=== PATIENT | male | born 1940 | race Caucasian/White ===

== ENCOUNTER 2019-08-23 12:33 | Outpatient (CLI) | payer MEDICARE, SELFPAY ==
--- NOTE | ~2019-08-23 | MR_ITS ---
EXAMINATION: MR pelvis wo/w con DATE: 08/23/2019 15:07 INDICATION: Pelvic pain. Right lower quadrant abdominal pain. TECHNIQUE: Magnetic resonance imaging (MRI) of the pelvis was performed without and with 18 mL MultiH ance intravenous contrast. Sequences included coronal and axial T2-weighted SS-FSE, coronal and axial FS 2D-FIESTA, axial T1-weighted dual-echo FSPGR, and axial T1-weighted LAVA. Postcontrast axial T1-w eighted LAVA images were obtained. COMPARISON: Pelvis MRI 06/20/2009 FINDINGS: There are no dilated loops of bowel. There is diverticulosis of the colon without evidence of diverti culitis. The prostate is moderately enlarged. There are bilateral inguinal hernias containing fat. Th ere are no pathologically enlarged lymph nodes. There is no free intraperitoneal fluid. IMPRESSION: 1. Bilateral inguinal hernias containing fat. Reviewed, dictated and finalized at location A. COORDINATOR
--- NOTE | ~2019-08-23 | MR_ITS ---
EXAMINATION: MR abdomen wo/w con DATE: 08/23/2019 15:07 INDICATION: Right lower quadrant abdominal pain. TECHNIQUE: Magnetic resonance imaging (MRI) of the abdomen was performed without and with 18 mL Multi Javier intravenous contrast. Sequences included coronal T2-weighted FS FSE, coronal and axial FS FIEST A, axial T2-weighted FSE, coronal LAVA-flex, axial STIR FSE, axial DWI, axial dual-echo T1-weighted F SPGR, and axial LAVA. Postcontrast sequences included coronal LAVA-flex and a time course of axial LA VA. COMPARISON: Abdomen MRI 06/20/2009 FINDINGS: There are numerous cysts in the liver measuring up to 3.3 cm. The gallbladder is normal. There is an 8 mm cyst in the spleen. The pancreas and adrenal glands are normal. There are cysts in the kidneys m easuring up to 2.1 cm on the right. There are changes of focal ablation of left kidney. There are no dilated loops of bowel. There are no pathologically enlarged lymph nodes. There is no free intraperit andrade fluid. IMPRESSION: 1. No etiology for the patient's symptoms. Reviewed, dictated and finalized at location A. STANT PLANT MANAGER
[2019-08-23 13:19] LABS: Blood Urea Nitrogen 14 mg/dL (8-26); Estimated Glomerular Filt Rate 53
== END 2019-08-23 12:34 | disposition home or self-care (01) ==
PROVIDERS: PCP Family Medicine; Visit Provider Family Medicine
DX: R10.2 Pelvic and perineal pain (principal); K40.20 Bilateral inguinal hernia, without obstruction or gangrene, not specified as recurrent
CPT/HCPCS: 72197; 74183; A9577

== ENCOUNTER 2022-01-19 13:45 | Emergency (ER) | payer MEDICARE, SELFPAY ==
[2022-01-19 14:10] VITALS: BP 139/53; PULSE 70; RESP 20; TEMP 36.6; O2SAT 97
--- NOTE | 2022-01-19 14:12 | ED.SKABFB ---
HPI - Skin/Abscess/Foreign Bdy General Chief complaint: Skin/Abscess/Foreign Body Stated complaint: Rash Time Seen by Provider: 01/19/22 14:30 Source: patient and RN notes reviewed Mode of arrival: ambulatory Limitations: no limitations History of Present Illness HPI narrative: 81-year-old male presents concern for itchy rash on bilateral forearms. He reports he has used poison ras treatment and fungal cream. He reports the rash has been there for 10 to 14 days. He reports the rash appeared after he was [place] [facility] [place]. He denies any known bites, he did not pull any ticks off his skin. He denies swollen lips, swollen tongue, trouble breathing. MD complaint: rash Related Data Home Medications Medication Instructions Recorded Confirmed aspirin 81 mg tablet,delayed 81 mg PO DAILY 09/12/19 09/18/19 release (Adult Low Dose Aspirin) atovaquone 250 mg-proguanil 100 mg 1 tablet PO DAILY 09/12/19 09/18/19 tablet (Malarone) cholecalciferol (vitamin D3) 50 2,000 unit PO DAILY 09/12/19 09/18/19 mcg (2,000 unit) tablet (Vitamin D3) citalopram 20 mg tablet 20 mg PO DAILY 09/12/19 09/18/19 glipizide 2.5 mg tablet, extended 2.5 mg PO DAILY 09/12/19 09/18/19 release 24 hr ibuprofen 600 mg tablet 600 mg PO Q6H PRN 09/12/19 09/18/19 metformin 500 mg tablet,extended 500 mg PO DAILY 09/12/19 09/18/19 release 24 hr turmeric 400 mg capsule mg PO 09/12/19 09/18/19 Allergies Allergy/AdvReac Type Severity Reaction Status Date / Time Gadolinium-Containing Allergy Unknown Unknown Verified 12/04/20 12:07 Contrast Medi Contrast Media Allergy Severe SEVERE Uncoded 12/04/20 12:07 FACIAL SWELLING Review of Systems Review of Systems: CONSTITUTIONAL: Denies malaise, chills, sweats, or fever. EYES: Denies redness, or discharge. ENT: Denies rhinorrhea, congestion, swollen lips, swollen tongue CARDIOVASCULAR: Denies chest pain, palpitations, or edema. RESPIRATORY: Denies cough or dyspnea. SKIN: Reports itchy rash on bilateral forearms MUSCULOSKELETAL: Denies joint pain or myalgia. NEUROLOGIC: Denies headache. All systems reviewed & are unremarkable except as noted in HPI and below PMFSH Past Medical History Medical History (Updated 01/19/22 @ 14:37 by Penelope Mcgarry NP) Cancer of kidney Colon cancer Minimal cognitive impairment Obstructive sleep apnea syndrome Psychosexual dysfunction associated with inhibited libido Recurrent major depressive episodes, moderate Type II diabetes mellitus Surgical History Surgical History (System 12/04/20 @ 12:07 by Stacy Quintero) History of appendectomy History of partial colectomy 2002 History of umbilical hernia repair 2003 Family History Family History (System 12/04/20 @ 12:07 by Stacy Quintero) Father Heart attack Mother Lung cancer Social History Social History (System 12/04/20 @ 12:07 by Stacy Quintero) Smoking status: Current some day smoker Alcohol intake: current Comments At time of signature, agree with nursing past medical, surgical, social and family history. There is no relevant family history pertinent to the presenting complaint Exam Narrative: GENERAL: Well-appearing, well-nourished, and in no acute distress. HEAD: Normocephalic, atraumatic. EYES: PERRLA, conjunctivae clear ENT: Mucous membranes moist. Oropharynx without edema, erythema or lesions. NECK: Supple. No lymphadenopathy CHEST: Clear to auscultation. No respiratory distress. HEART: Regular rate and rhythm. SKIN: Warm, dry. Patches of raised erythema on bilateral forearms, large patch on the right elbow NEURO: Alert and oriented x3. PSYCH: Normal mood and affect Course Course Emergency Course: Patient is aware of diagnosis, understands and agrees to treatment plan. Anticipatory guidance given. Patient agrees to follow-up as directed and is aware of reasons to seek care at the emergency department. Portion
== END 2022-01-19 14:45 | disposition home or self-care (01) ==
PROVIDERS: Emergency Provider Nurse Practitioner; PCP Family Medicine
DX: L25.9 Unspecified contact dermatitis, unspecified cause (principal); E11.9 Type 2 diabetes mellitus without complications
CPT/HCPCS: 99213; G0463

== ENCOUNTER 2022-04-08 10:42 | Outpatient (CLI) | payer MEDICARE, SELFPAY ==
--- NOTE | ~2022-04-08 | CT_ITS ---
EXAMINATION: CT abdomen pelvis wo con DATE: 04/08/2022 11:20 INDICATION: Abdominal pain TECHNIQUE: Computed tomography (CT) of the abdomen and pelvis was performed without intravenous contr ast. The dose-length product (DLP) was 616.42 mGy-cm. Automated exposure control and iterative recons truction technique were employed. COMPARISON: 02/10/2007; MRI, 08/23/2019 FINDINGS: Minimal dependent atelectasis is present in the lung bases. The heart size is normal. There are multiple cysts of the liver which measure up to 3.3 cm in the left hepatic lobe. The spleen, kee creas, gallbladder, and adrenal glands are normal. Cysts of the kidneys measure up to 11 mm on the le ft. There is calcification of the left kidney, consistent with treatment for renal cell carcinoma. No pathologically enlarged abdominal or pelvic lymph nodes are identified. There is calcified atheroscl erosis of the aorta and many of the other arteries. There is no free intraperitoneal gas or evidence of bowel obstruction. Colonic diverticulosis is present without evidence of diverticulitis. There are changes of right hemicolectomy. There is severe lumbar spondylosis. IMPRESSION: 1. No CT correlate for the patient's symptoms. Reviewed, dictated and finalized at location A.
== END 2022-04-08 10:43 | disposition home or self-care (01) ==
PROVIDERS: PCP Family Medicine; Visit Provider Family Medicine
DX: R10.9 Unspecified abdominal pain (principal)
CPT/HCPCS: 74176

== ENCOUNTER 2022-09-23 09:00 | Outpatient (CLI) | payer MEDICARE, SELFPAY ==
--- NOTE | ~2022-09-23 | CT_ITS ---
EXAMINATION: CT abdomen pelvis w con DATE: 09/23/2022 09:44 INDICATION: Abdominal pain TECHNIQUE: Computed tomography (CT) of the abdomen and pelvis was performed with 100 CC Omnipaque 350 intravenous contrast. Automated exposure control and iterative reconstruction technique were employe d. Exam dose: 516.40 mGy-cm total exam DLP. COMPARISON: 04/08/2022 CT abdomen pelvis FINDINGS: The lung bases are clear. Normal heart size. No pericardial or pleural effusion. There are numerous hepatic cysts of variable size scattered throughout left and right hepatic lobes a s well as caudate process, measuring up to 3.3 cm dimension. No suspicious solid hepatic lesion is ev ident. The gallbladder is present and appears unremarkable. No bile duct or pancreatic duct dilatation. No p ancreatic mass lesion or calcification. Normal splenic size. Normal morphology of the adrenal glands. Posterior lower pole right renal exophytic 2.2 cm cyst. 1.5 cm and two 1 cm left renal cysts. There is focal scarring and very prominent up to 1.7 x 1.9 cm dense large calcification at the anteri or mid to lower left kidney; history of treatment for prior left renal carcinoma. No urinary tract calcification or hydroureteronephrosis. There is prostate enlargement. Mild bilateral fat containing inguinal hernias. There is atherosclerotic calcification but normal caliber of the abdominal aorta. This probably calci fication at the origins of the renal arteries. Calcification of iliac and femoral arteries. No intraperitoneal or retroperitoneal or pelvic mass lesion or adenopathy or ascites. Status post right colectomy. Status post anterior abdominal wall mesh surgical repair. Diverticulosis of the sigmoid and descending colon; no evidence of diverticulitis. No bowel obstructi on or intraperitoneal free air. Prominent multilevel degenerative disc disease and degenerative changes apophyseal joints of the lumb ar spine. Diffuse idiopathic skeletal hyperostosis of the thoracic spine. IMPRESSION: Status post right colectomy Diverticulosis of left colon; no CT evidence of diverticulitis Numerous hepatic and scattered bilateral renal cysts Focal scarring and very prominent calcification at the anterior mid left kidney, residual from prior renal cell carcinoma treatment Prostate enlargement Bilateral fat-containing inguinal hernias Reviewed, dictated and finalized at Location A. Reviewed, dictated and finalized at location L. NCED MANUFACTURING ENGINEER IMPRESSION: Status post right colectomy Diverticulosis of left colon; no CT evidence of diverticulitis Numerous hepatic and scattered bilateral renal cysts Focal scarring and very prominent calcification at the anterior mid left kidney , residual from prior renal cell carcinoma treatment Prostate enlargement Bilateral fat-containing inguinal hernias
[2022-09-23 09:40] LABS: Estimated Glomerular Filt Rate > 60
== END 2022-09-23 09:01 | disposition home or self-care (01) ==
PROVIDERS: PCP Family Medicine; Visit Provider Family Medicine
DX: R10.9 Unspecified abdominal pain (principal); Z90.49 Acquired absence of other specified parts of digestive tract; K57.90 Diverticulosis of intestine, part unspecified, without perforation or abscess without bleeding; K76.89 Other specified diseases of liver; N28.1 Cyst of kidney, acquired; N40.0 Benign prostatic hyperplasia without lower urinary tract symptoms; K40.20 Bilateral inguinal hernia, without obstruction or gangrene, not specified as recurrent
CPT/HCPCS: 74177; Q9967

== ENCOUNTER → 2022-11-16 09:47 | Outpatient (CLI) | payer MEDICARE, SELFPAY ==
--- NOTE | ~2022-11-16 | XR_ITS ---
Lumbosacral Spine: AP and lateral views Clinical History: Pain Findings: There is mild dextroscoliosis. There is severe degenerative disc disease throughout the lum bar spine. There are prominent anterior marginal osteophytes, especially at L1-L2, L3-L4, L4-L5. Ther e is probable moderate facet arthropathy, especially at the lower lumbar spine. The sacroiliac joints are normally outlined. Impression: Advanced degenerative spondylosis, as detailed above. Reviewed, dictated and finalized at location M. Impression: Advanced degenerative spondylosis, as detailed above.
--- NOTE | ~2022-11-16 | XR_ITS ---
AP and lateral views of the right hip Clinical history: Pain Findings: No acute fracture or dislocation is seen. Osseous alignment is anatomic. The right hip join t and right SI joint are preserved. Soft tissues are unremarkable. Impression: No significant abnormality is seen. Reviewed, dictated and finalized at location . Impression: No significant abnormality is seen.
== END ==
PROVIDERS: PCP Family Medicine; Visit Provider Physician Assistant
DX: M25.551 Pain in right hip (principal); M47.816 Spondylosis without myelopathy or radiculopathy, lumbar region
CPT/HCPCS: 72100; 73502

== ENCOUNTER 2023-03-05 12:06 | Emergency (ER) | payer MEDICARE, SELFPAY ==
[2023-03-05 12:17] VITALS: BP 127/67; PULSE 57; RESP 18; TEMP 36.9; O2SAT 98
--- NOTE | 2023-03-05 12:33 | ED.ANIMALBIT ---
HPI - Animal Bite General Chief Complaint: Animal Bite Stated Complaint: Animal Bite Time Seen by Provider: 03/05/23 12:20 Source: patient Mode of arrival: ambulatory Limitations: no limitations History of Present Illness HPI narrative: Jean Pierre is a an 82-year-old male patient presenting to the clinic today with complaints of a opossum bite to his left hand. He reports he was releasing a opossum back into the wild yesterday and was bitten by the possum when trying to remove them. Left hand is swollen and painful. Tetanus is not up-to-date Related Data Home Medications Medication Instructions Recorded Confirmed aspirin 81 mg tablet,delayed 81 mg PO DAILY 09/12/19 09/18/19 release (Adult Low Dose Aspirin) atovaquone 250 mg-proguanil 100 mg 1 tablet PO DAILY 09/12/19 09/18/19 tablet (Malarone) cholecalciferol (vitamin D3) 50 2,000 unit PO DAILY 09/12/19 09/18/19 mcg (2,000 unit) tablet (Vitamin D3) citalopram 20 mg tablet 20 mg PO DAILY 09/12/19 09/18/19 glipizide 2.5 mg tablet, extended 2.5 mg PO DAILY 09/12/19 09/18/19 release 24 hr ibuprofen 600 mg tablet 600 mg PO Q6H PRN 09/12/19 09/18/19 metformin 500 mg tablet,extended 500 mg PO DAILY 09/12/19 09/18/19 release 24 hr turmeric 400 mg capsule mg PO 09/12/19 09/18/19 Allergies Allergy/AdvReac Type Severity Reaction Status Date / Time Gadolinium-Containing Allergy Unknown Unknown Verified 12/04/20 12:07 Contrast Medi Contrast Media Allergy Severe SEVERE Uncoded 12/04/20 12:07 FACIAL SWELLING Review of Systems Review of Systems: Pertinent positives per HPI. Patient denies any fever, chills, rash, headache, visual changes, dizziness, cough, runny nose, sore throat, shortness of breath, chest pain, palpitations, nausea, vomiting, diarrhea, constipation, abdominal pain, or any urinary issues. PMF Past Medical History Medical History Cancer of kidney Colon cancer Minimal cognitive impairment Obstructive sleep apnea syndrome Psychosexual dysfunction associated with inhibited libido Recurrent major depressive episodes, moderate Type II diabetes mellitus Surgical History Surgical History (System 12/04/20 @ 12:07 by Stacy Quintero) History of appendectomy History of partial colectomy 2002 History of umbilical hernia repair 2003 Family History Family History Father Heart attack Mother Lung cancer Social History Social History Smoking status: Current some day smoker Alcohol intake: current Living arrangements: with family Occupation/Education: retired Comments At the time of my signature, I reviewed and agree with the nursing past medical, surgical, social, and family history. There is no relevant family history pertinent to the patient complaint. Exam Narrative: General: Well-developed, well nourished, in no apparent distress Head: Normocephalic, atraumatic. Cardio: Regular rate and rhythm, s1 and s2 normal, no murmur appreciated. Resp: Clear to auscultation bilaterally, no rhonchi, rales, wheezing or rubs. Integumentary: [place], warm, and dry, puncture wound over the left 1st and 2nd ankles of the right hand with localized swelling and redness, no discharge, no fluctuance or abscess palpable, able to fully extend and flex his index and 3rd fingers Course Course Emergency Course: Portions of this record may have been created with voice recognition software. Level of Care: Express Care Visit Vital Signs Vital signs: Vital signs reviewed MDM - Animal Bite MDM Narrative Medical decision making narrative: At the time of visit patient is resting comfortably on the exam table. I suspect the patient has an infected animal bite. Tetanus shot was given in the clinic today. Reviewed
[2023-03-05] MEDS: TETANUS,DIPHTHERIA,AC PERTUSSIS ADULT (0.5 ML) BOOSTRIX IM (12:40)
--- NOTE | 2023-03-05 12:56 | PC.NURSE ---
documentation completed per sivakumar chapman rn, and reviewed.
== END 2023-03-05 12:55 | disposition home or self-care (01) ==
PROVIDERS: Emergency Provider Nurse Practitioner Family; PCP Family Medicine
DX: S61.431A Puncture wound without foreign body of right hand, initial encounter (principal); W64.XXXA Exposure to other animate mechanical forces, initial encounter; Z23 Encounter for immunization; F17.200 Nicotine dependence, unspecified, uncomplicated; E11.9 Type 2 diabetes mellitus without complications; Z85.038 Personal history of other malignant neoplasm of large intestine; Z85.528 Personal history of other malignant neoplasm of kidney; Z79.82 Long term (current) use of aspirin; Z79.84 Long term (current) use of oral hypoglycemic drugs
CPT/HCPCS: 90471; 90714; 90715; 99213; G0463

== ENCOUNTER 2023-05-14 11:34 | Emergency (ER) | payer MEDICARE, SELFPAY ==
[2023-05-14 11:42] VITALS: BP 151/64; PULSE 62; RESP 18; TEMP 36.4; O2SAT 96
--- NOTE | 2023-05-14 11:59 | ECG_ITS ---
Measurements Intervals [place] Rate: 58 P: 46 GA: 295 QRS: 72 QRSD: 153 T: 18 QT: 466 QTc: 458 Interpretive Statements SINUS BRADYCARDIA WITH FIRST DEGREE AV BLOCK RIGHT BUNDLE BRANCH BLOCK [120+ ms QRS DURATION, UPRIGHT V1, 40+ ms S IN I/aVL/V4/V5/V6] ABNORMAL ECG NO PREVIOUS ECG AVAILABLE FOR COMPARISON Electronically Signed On 05-14-2023 14:43:57 CDT by Helder Barclay M.D.
--- NOTE | 2023-05-14 12:20 | ED.FALL ---
HPI - Fall General Chief Complaint: Skin/Abscess/Foreign Body Stated Complaint: fall, dizziness, hand injury Time Seen by Provider: 05/14/23 12:00 Source: patient and RN notes reviewed Mode of arrival: ambulatory Limitations: no limitations History of Present Illness HPI Narrative: Patient presents today complaining of dizziness and fall around 10 30 this morning. He struck the posterior scalp on concrete. Denies loss of consciousness. He also reports a laceration to his left hand. Patient takes aspirin. Denies headache, vision changes, nausea vomiting, chest pain or shortness of breath, neck pain. History of high blood pressure and high cholesterol. Related Data Home Medications Medication Instructions Recorded Confirmed aspirin 81 mg tablet,delayed 81 mg PO DAILY 09/12/19 09/18/19 release (Adult Low Dose Aspirin) cholecalciferol (vitamin D3) 50 2,000 unit PO DAILY 09/12/19 09/18/19 mcg (2,000 unit) tablet (Vitamin D3) citalopram 20 mg tablet 20 mg PO DAILY 09/12/19 09/18/19 atorvastatin 10 mg tablet mg 05/14/23 biotin 10,000 mcg chewable tablet mcg PO 05/14/23 05/14/23 lisinopril 5 mg tablet mg 05/14/23 Allergies Allergy/AdvReac Type Severity Reaction Status Date / Time Gadolinium-Containing Allergy Unknown Unknown Verified 05/14/23 11:40 Contrast Medi Contrast Media Allergy Severe SEVERE Uncoded 05/14/23 11:40 FACIAL SWELLING Review of Systems Review of Systems: CONSTITUTIONAL: Denies body aches, fever, chills, or sweats. EYES: Denies visual changes, redness, or discharge. ENT: Denies rhinorrhea, congestion, sore throat, or otalgia. CARDIOVASCULAR: Denies chest pain, palpitations, or edema. RESPIRATORY: Denies cough or dyspnea. GASTROINTESTINAL: Denies abdominal pain, nausea, vomiting, or diarrhea. GENITOURINARY: Denies dysuria or hematuria. SKIN: + abrasion to scalp, laceration to left hand MUSCULOSKELETAL: Denies back pain, joint pain, or myalgia. NEUROLOGIC: Denies headache, numbness, tingling, or weakness.+ dizziness PSYCH: Denies depression or anxiety. [facility] Past Medical History Medical History (Updated 05/14/23 @ 12:32 by Patrizia Andersen, [employer] WINDOWS ENGINEER, ) Cancer of kidney Colon cancer Minimal cognitive impairment Obstructive sleep apnea syndrome Psychosexual dysfunction associated with inhibited libido Recurrent major depressive episodes, moderate Type II diabetes mellitus Surgical History Surgical History History of appendectomy History of partial colectomy 2003 History of umbilical hernia repair 2004 Family History Family History Father Heart attack Mother Lung cancer Social History Social History Smoking status: Current some day smoker Alcohol intake: current Living arrangements: with family Occupation/Education: retired Comments At time of signature, I have reviewed and agree with nursing past medical, surgical, social and family history unless otherwise noted. Please see nursing chart for further information. There is no relevant family history pertinent to the presenting complaint Exam Narrative: GENERAL: Well-appearing, well-nourished, and in no acute distress. HEAD: Normocephalic. 5x5 cm abrasion and localized edema to the posterior scalp. EYES: EOMI. No redness or drainage. Conjunctivae normal. ENT: Mucous membranes pink and moist. NECK: Normal AROM. Supple. No lymphadenopathy. Neck is nontender. CHEST: No respiratory distress. Clear to auscultation. HEART: Regular rate and rhythm. No murmur appreciated. Normal peripheral pulses. On monitor, patient's HR variable from 30s-50s EXTREMITIES: Normal range of motion. No edema. SKIN: Warm, dry, no rash. Capillary refill normal. Normal skin turgor. 2cm full thickness laceration t
== END 2023-05-14 12:18 | disposition short-term general hospital (02) ==
PROVIDERS: Emergency Provider Nurse Practitioner; PCP Family Medicine
DX: R42 Dizziness and giddiness (principal); R00.1 Bradycardia, unspecified; S09.90XA Unspecified injury of head, initial encounter; W19.XXXA Unspecified fall, initial encounter; F17.200 Nicotine dependence, unspecified, uncomplicated; E11.9 Type 2 diabetes mellitus without complications; Z85.038 Personal history of other malignant neoplasm of large intestine; Z85.528 Personal history of other malignant neoplasm of kidney; Z79.82 Long term (current) use of aspirin; F33.9 Major depressive disorder, recurrent, unspecified; Z90.49 Acquired absence of other specified parts of digestive tract
CPT/HCPCS: 93005; 99215; G0463

== ENCOUNTER 2023-05-14 12:38 | Emergency (ER) | payer MEDICARE, SELFPAY ==
--- NOTE | ~2023-05-14 | XR_ITS ---
XR chest 2V DATE: 05/14/2023 14:09 INDICATION: Dizziness. Fall this morning. 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 Left ventricular enlargement. Aortic calcification and mild unfolding. No hilar or mediastinal enlarg ement. Bilateral moderate hyperinflation. Vague focal ill-defined density overlying left upper lung; CT thorax is recommended to exclude left u pper lobe lung mass. Otherwise no pulmonary infiltrate or consolidation, pleural effusion or pulmonar y vascular congestion or pneumothorax is detected. Degenerative spurring of the thoracic spine. IMPRESSION: Vague focal area of increased density overlying left upper lung; left upper lobe mass is not excluded. CT thorax is recommended. Left ventricular enlargement Moderate hyperinflation No active pulmonary disease Reviewed, dictated and finalized at location A. IMPRESSION: Vague focal area of increased density overlying left upper lung; le ft upper lobe mass is not excluded. CT thorax is recommended. Left ventricular enlargement Moderate hyperinflation No active pulmonary disease
--- NOTE | ~2023-05-14 | CT_ITS ---
EXAMINATION: CT brain wo con DATE: 05/14/2023 14:00 INDICATION: Head injury. Syncopal episode. Patient struck the back of his head. Patient takes blood t hinners. TECHNIQUE: Computed tomography (CT) of the head was performed without intravenous contrast. The mA wa s adjusted according to patient size. Iterative reconstruction technique was employed. Exam dose: 60 5.33 mGy-cm total exam DLP. COMPARISON: None FINDINGS: Vertebral and carotid siphon internal carotid artery calcifications. There is nonspecific d iminished attenuation of the cerebral white matter, likely due to chronic small vessel ischemic dut[place] es. No intracranial mass lesion or hemorrhage or recent cerebrovascular accident, midline shift or mass e ffect is detected. No subdural or epidural hematoma is detected. The mastoid air cells are unremarkable. Is patchy soft tissue thickening of the ethmoid air cells amol aterally. The paranasal sinuses are otherwise unremarkable. No fracture or bone destruction of the cranial vault. IMPRESSION: No skull fracture or acute intracranial finding Cerebral atherosclerosis Reviewed, dictated and finalized at Location [facility]. Reviewed, dictated and finalized at location A.
--- NOTE | ~2023-05-14 | CT_ITS ---
EXAMINATION: CT diagnostic chest wo con DATE: 05/14/2023 15:17 INDICATION: left lung mass TECHNIQUE: Computed tomography (CT) of the chest was performed with 100 mL Omnipaque-350 intravenous contrast. Automated exposure control and iterative reconstruction technique were employed. The dose-l ength product was 327.16 mGy-cm. COMPARISON: X-ray chest 05/06/2023. FINDINGS: CHEST: Thoracic aorta: No significant dilation or calcification. Lung parenchyma and airways: Mixed solid and groundglass left upper lobe nodule with spiculated and l obular margins. Solid component measures 12 mm. Emphysematous change. Thoracic inlet, axillae and chest wall: Calcified left axillary lymph node. 1.7 cm right thyroid nodu le. Mediastinum: No mass or lymphadenopathy. Heart and pericardium: Normal heart size. No pericardial effusion. Coronary artery calcifications: Heavy. Pleura: No effusion or mass. Upper abdomen: Innumerable hepatic cysts. Dystrophic scar class calcification in the left kidney. Jorge cified cyst/hemangioma in the spleen. Thoracic bones: No acute osseous finding in the chest. IMPRESSION: 12 mm partly solid left upper lobe nodule. Recommend PET/CT, biopsy, or referral for resection. 1.7 cm right thyroid nodule, recommend outpatient thyroid ultrasound for further characterization. Reviewed, dictated and finalized at location K. IMPRESSION: 12 mm partly solid left upper lobe nodule. Recommend PET/CT, biopsy, or referra l for resection. 1.7 cm right thyroid nodule, recommend outpatient thyroid ultrasound for furthe r characterization.
--- NOTE | ~2023-05-14 | XR_ITS ---
XR hand LT min 3V DATE: 05/14/2023 14:09 INDICATION: Fall. Pulmonary laceration near fifth metacarpophalangeal joint TECHNIQUE: 3 views COMPARISON: None FINDINGS: No subcutaneous emphysema or fracture or dislocation, periosteal reaction or bone destructi on is noted. There is polyarticular arthritis involving particularly the first carpometacarpal and second and thir d metacarpophalangeal joints, with involvement of the remaining metacarpophalangeal joints. IMPRESSION: Polyarticular osteoarthritis No fracture or dislocation or subcutaneous emphysema is detected Reviewed, dictated and finalized at location A.
[2023-05-14 12:42] VITALS: BP 180/85; PULSE 61; RESP 16; TEMP 36.7; O2SAT 99
--- NOTE | 2023-05-14 12:57 | ED.FALL ---
HPI - Fall General Chief Complaint: Fall Stated Complaint: fall/ head injury Time Seen by Provider: 05/14/23 12:41 History of Present Illness HPI Narrative: Patient is an 82-year-old male who presents ER after a fall. Reports she has had a chill he took off when he either got dizzy and fell or tripped and fell striking the back of his head against the ground. Denies losing consciousness. Reports he has been having intermittent dizziness since then with physical movements but not with moving his head left or right or up and down. No confusion. No change in vision or hearing. Reports she has some stiffness in his left fifth digit where he has a palmar laceration. Tetanus shot up-to-date. After getting up from falling he said he was dizzy and nauseous and did throw up. Patient is on no blood thinners. Urgent care reports patient's heart rate was in the 30s and 50s intermittently but patient is not dizzy at that time. Related Data Home Medications Medication Instructions Recorded Confirmed aspirin 81 mg tablet,delayed 81 mg PO DAILY 09/12/19 09/18/19 release (Adult Low Dose Aspirin) cholecalciferol (vitamin D3) 50 2,000 unit PO DAILY 09/12/19 09/18/19 mcg (2,000 unit) tablet (Vitamin D3) citalopram 20 mg tablet 20 mg PO DAILY 09/12/19 09/18/19 atorvastatin 10 mg tablet mg 05/14/23 biotin 10,000 mcg chewable tablet mcg PO 05/14/23 05/14/23 lisinopril 5 mg tablet mg 05/14/23 Allergies Allergy/AdvReac Type Severity Reaction Status Date / Time Gadolinium-Containing Allergy Unknown Unknown Verified 05/14/23 11:40 Contrast Medi Contrast Media Allergy Severe SEVERE Uncoded 05/14/23 11:40 FACIAL SWELLING Review of Systems Review of Systems: All systems reviewed & are unremarkable except as noted in HPI and below Constitutional: Constitutional: Denies chills, Denies fatigue and Denies fever(s) Eyes: Eyes: Denies change in vision ENT: Denies nasal congestion and Denies sore throat Cardiovascular: Cardiovascular: Denies chest pain, Denies rapid heart rate, Denies radiating jaw, neck or arm pain and Reports slow heart rate (Urgent care reports slow heart rate in the 30s to 50s.) Respiratory: Respiratory: Denies cough, Denies dyspnea and Denies wheezing Gastrointestinal: Gastrointestinal: Denies abdominal pain, Reports nausea and Reports vomiting Neurologic: Denies syncope, Denies headache(s), Denies focal weakness and Denies numbness PMFSH Past Medical History Medical History (Updated 05/14/23 @ 16:46 by Gus Mir MD) Cancer of kidney Colon cancer Minimal cognitive impairment Obstructive sleep apnea syndrome Psychosexual dysfunction associated with inhibited libido Recurrent major depressive episodes, moderate Type II diabetes mellitus Surgical History Surgical History History of appendectomy History of partial colectomy 2002 History of umbilical hernia repair 2003 Family History Family History Father Heart attack Mother Lung cancer Social History Social History Smoking status: Current some day smoker Alcohol intake: current Living arrangements: with family Occupation/Education: retired Exam Narrative: GENERAL: Well-appearing, well-nourished, and in no acute distress. HEAD: Normocephalic, abrasion with STS posterior scalp. EYES: PERRL and EOMI. ENT: Mucous membranes moist. CHEST: Clear to auscultation. No respiratory distress. HEART: Regular rate and rhythm. Normal peripheral pulses. ABDOMEN: Soft, nontender, nondistended EXTREMITIES: Normal range of motion. No edema. SKIN: Warm, dry, no rash. 2cm palmar lac left hand at 5th MCP. NEURO: Alert and oriented x3. PSYCH: Normal mood and affect. Course Course Emergency Course: Patient rest
--- NOTE | 2023-05-14 13:04 | ECG_ITS ---
Measurements Intervals [place] Rate: 58 P: 5 SC: 299 QRS: 56 QRSD: 158 T: -5 QT: 457 QTc: 452 Interpretive Statements SINUS BRADYCARDIA WITH FIRST DEGREE AV BLOCK WITH OCCASIONAL VENTRICULAR PREMATURE COMPLEXES RIGHT BUNDLE BRANCH BLOCK [120+ ms QRS DURATION, UPRIGHT V1, 40+ ms S IN I/aVL/V4/V5/V6] ABNORMAL ECG COMPARED TO ECG 05/14/2023 11:58:16 NO SIGNIFICANT CHANGES Electronically Signed On 05-14-2023 14:47:03 CDT by Helder Barclay M.D.
[2023-05-14 13:12] LABS: Basophils Absolute Auto 0.1 K/mm3 (0.0-0.1); Basophils Percent Auto 0.6 % (0.2-1.2); Eosinophils Absolute Auto 0.3 K/mm3 (0-0.3); Hematocrit 40.6 % (42.0-52.0); Hemoglobin 13.7 g/dL (14.0-18.0); Immature Granulocyte Absolute 0.06 K/mm3 (0.00-0.031); Immature Granulocyte Percent A 0.6 % (0-0.5); Lymphocytes Absolute Auto 1.45 K/mm3 (0.9-3.2); Lymphocytes Percent Auto 14.8 % (18.3-44.2); Mean Corpuscular HGB Conc 33.7 g/dl (32-36); Mean Corpuscular Hemoglobin 32.5 pg (26-34); Mean Corpuscular Volume 96.4 fl (80-100); Mean Platelet Volume 9.8 fl (7.4-10.4); Monocytes Absolute Auto 0.8 K/mm3 (0.1-0.6); Neutrophils Absolute Auto 7.2 K/mm3 (1.3-6.7); Platelet Count Result 219 k/mm3 (150-375); Red Blood Count 4.21 M/mm3 (4.6-6.20); Red Cell Distribution Width 12.1 % (11.5-14.5); White Blood Count 9.8 K/mm3 (4.5-10.0)
[2023-05-14 13:22] LABS: Prothrombin Time 13.5 Seconds (11.1-14.7)
[2023-05-14 13:23] LABS: Partial Thromboplastin Time 25.8 SECONDS (22.3-36.8)
[2023-05-14 13:24] LABS: Alanine Aminotransferase 21 U/L (6-50); Albumin Level 4.2 g/dL (3.5-5.1); Alkaline Phosphatase 60 U/L (38-126); Anion Gap 8 mmol/L (8-16); Aspartate Amino Transferase 26 U/L (17-59); Blood Urea Nitrogen 12 mg/dL (9-20); Calcium 9.1 mg/dL (8.4-10.2); Carbon Dioxide 26 mmol/L (22-30); Chloride 102 mmol/L (98-107); Estimated CRCL calculation 55 ml/min; Estimated Glomerular Filt Rate > 60; Glucose 124 mg/dL (65-110); Potassium 4.2 mmol/L (3.4-5.0); Sodium 136 mmol/L (137-145)
[2023-05-14 13:31] VITALS: BP 161/82; PULSE 59
[2023-05-14 13:32] VITALS: BP 167/81; PULSE 60
[2023-05-14 13:34] LABS: Troponin I < 0.012 ng/mL (0.000-0.034)
[2023-05-14 13:35] VITALS: BP 158/81; PULSE 60
[2023-05-14 15:26] VITALS: BP 152/75; PULSE 62; RESP 18; O2SAT 98
== END 2023-05-14 16:57 | disposition home or self-care (01) ==
PROVIDERS: Emergency Provider Emergency Medicine; PCP Family Medicine
DX: S09.90XA Unspecified injury of head, initial encounter (principal); S61.412A Laceration without foreign body of left hand, initial encounter; R91.1 Solitary pulmonary nodule; E04.1 Nontoxic single thyroid nodule; R11.0 Nausea; E11.9 Type 2 diabetes mellitus without complications; F17.210 Nicotine dependence, cigarettes, uncomplicated; Z79.899 Other long term (current) drug therapy; Z85.528 Personal history of other malignant neoplasm of kidney; W01.0XXA Fall on same level from slipping, tripping and stumbling without subsequent striking against object, initial encounter
CPT/HCPCS: 12001; 36415; 70450; 71046; 71250; 73130; 80053; 84484; 85025; 85610; 85730; 93005; 99284

== ENCOUNTER 2023-06-13 15:36 | Outpatient (CLI) | payer MEDICARE, SELFPAY ==
--- NOTE | ~2023-06-13 | US_ITS ---
EXAMINATION: US carotid duplex BI DATE: 06/13/2023 17:28 INDICATION: Bilateral carotid stenosis TECHNIQUE: Grayscale, color Doppler, and pulsed Doppler images of the cervical carotid arteries were obtained. The degree of vessel stenosis is placed in one of the following categories: normal, <50%, 5 0-69%, >=70% but less than near-occlusion, near-occlusion, or total occlusion. Note that percent sten osis relative to normal distal artery lumen diameter is indirectly measured from velocity measurement s as described by Teddy, et al. Radiology 2003; 229:340-346. COMPARISON: None. FINDINGS: RIGHT: The right common carotid artery (CCA) peak systolic velocity (PSV) is 82 cm/s. The right internal car otid artery (ICA) PSV is 65 cm/s. The right ICA end-diastolic velocity (EDV) is 12 cm/s. The right IC A/CCA PSV ratio is 0.8. Grayscale and color Doppler images yield an estimate of <50% diameter reducti on from plaque in the ICA. The external carotid artery (ECA) PSV is 92 cm/s. There is antegrade flow in the right vertebral artery. LEFT: The left CCA PSV is 91 cm/s. The left ICA PSV is 123 cm/s. The left ICA EDV is 24 cm/s. The left ICA/ CCA PSV ratio is 1.4. Grayscale and color Doppler images yield an estimate of <50% diameter reduction from plaque in the ICA. The ECA PSV is 85 cm/s. There is antegrade flow in the left vertebral artery . IMPRESSION: 1. <50% stenosis in the right internal carotid artery. 2. <50% stenosis in the left internal carotid artery. Reviewed, dictated and finalized at location A. GER ENGAGEMENT
--- NOTE | ~2023-06-13 | US_ITS ---
EXAMINATION: US thyroid DATE: 06/13/2023 17:29 INDICATION: Nontoxic single thyroid nodule TECHNIQUE: Multiple ultrasound images of the thyroid were obtained. COMPARISON: None. FINDINGS: The right thyroid lobe measures 4.9 x 2.1 x 1.8 cm. The left thyroid lobe measures 3.8 x 1.9 x 1.4 c m. 1.7 cm wider than tall spongiform TI RADS 1 nodule in the inferior right thyroid lobe. 4 mm anech oic cystic TI RADS 1 nodule in the left thyroid. There is normal echotexture, echogenicity and vascul ar flow throughout the remainder of the thyroid gland. IMPRESSION: 1. A couple benign TI RADS 1 thyroid nodules. Recommend clinical followup with repeat imaging if ther e are changes on physical exam. Reviewed, dictated and finalized at location A. REPAIR SHOP MANAGER IMPRESSION: 1. A couple benign TI RADS 1 thyroid nodules. Recommend clinical followup with repeat imaging if there are changes on physical exam.
== END 2023-06-13 15:37 | disposition home or self-care (01) ==
PROVIDERS: PCP Family Medicine; Visit Provider Family Medicine
DX: E04.1 Nontoxic single thyroid nodule (principal); I65.23 Occlusion and stenosis of bilateral carotid arteries
CPT/HCPCS: 76536; 93880

== ENCOUNTER 2023-06-14 07:22 | Outpatient (CLI) | payer MEDICARE, SELFPAY ==
--- NOTE | ~2023-06-14 | PE_ITS ---
EXAMINATION: PET skull to mid thigh DATE: 06/14/2023 09:21 INDICATION: Solitary pulmonary nodule. TECHNIQUE: Blood glucose level was 127 mg/dL. 9.155 mCi of 18-fluorodeoxyglucose (18-FDG) was adminis tered i.v. Low dose computed tomography (CT) images were acquired from the base of the brain to the p roximal thighs for attenuation correction and anatomic localization. Automated exposure control was e mployed. Dose-length product (DLP) was 915 mGy-cm. Positron emission tomography (PET) images were acq uired in the same distribution. COMPARISON: Chest CT 05/14/2023, CT abdomen and pelvis 04/08/2022, abdomen MRI 08/23/2019 FINDINGS: Head/neck: There are no pathologically enlarged lymph nodes. There are nodules in the thyroid measuri ng up to 12 mm without increased activity, likely not clinically significant. Chest: There is mild emphysema. There is mild scarring at the lung apices. There is mild scarring in paraspinal right lower lobe. There is a 1.7 cm nodule in left lung upper lobe with maximum SUV of 3.5 . No pleural effusion. The heart size is normal. There are coronary artery calcifications. No pericar dial effusion. There are no pathologically enlarged lymph nodes. Abdomen/pelvis/proximal thighs: There are cysts in the liver measuring up to 4.4 cm. The gallbladder, pancreas, and right adrenal gland are normal. There is chronic thickening of left adrenal gland with increased activity, likely benign. Calcifications in the spleen are consistent with old granulomatou s disease. There are cysts in the kidneys measuring up to 2.2 cm on the right. There are changes of a blation of left kidney. There are changes of ventral hernia repair. The prostate is moderately enlarg ed. There is diffuse bladder wall thickening, likely secondary to chronic outlet obstruction. There a re bilateral inguinal hernias containing fat. There is diverticulosis of the colon without evidence o f diverticulitis. There are changes of right hemicolectomy. There are no dilated loops of bowel. Ther e is calcified atherosclerosis of the aorta and many of the other arteries. There are no pathological ly enlarged lymph nodes. There is no free intraperitoneal fluid. There is severe lumbar spondylosis. IMPRESSION: 1. 1.7 cm nodule in left lung upper lobe with maximum SUV of 3.5 suspicious for primary bronchogenic carcinoma. CT-guided biopsy is recommended. Reviewed, dictated and finalized at location A. ING TACKER
[2023-06-14 07:56] LABS: Glucose Point of Care 127 mg/dl (65-105)
== END 2023-06-14 07:23 | disposition home or self-care (01) ==
PROVIDERS: PCP Family Medicine; Visit Provider Family Medicine
DX: R91.1 Solitary pulmonary nodule (principal)
CPT/HCPCS: 78815; A9552

== ENCOUNTER 2023-07-07 05:48 | Outpatient (CLI) | payer MEDICARE, SELFPAY ==
[2023-07-01 14:49] VITALS: BMI 27.6
--- NOTE | 2023-07-01 14:49 | PC.NURSE ---
Pre Radiology instructions Report to the outpatient evelyne valenzuela on date __07/07/23___ at time ___0900____ for procedure Time: _1100___ YOU MAY BE MONITORED AT HOSPITAL FOR UP TO 4 HOURS AFTER YOUR PROCEDURE. A visitor will be allowed to accompany the patient into the hospital. You and your visitor will be asked to self-screen and do not enter if you have any COVID symptoms. A mask is OPTIONAL within the hospital. Patients are to have no food or drink 6 hours prior to procedure time (0500 AM) Driving will be restricted after the procedure, you must have a person to drive you home. Labs will be drawn in preop area and once reviewed, you will be taken to radiology area for procedure. When the procedure is completed, you will be taken to outpatient where you will be monitored for several hours. You may have one visitor in this area. Other than holding anti-coagulants, patient may take other medication(s) as scheduled. Prior to your appointment date patients are instructed to hold anti-coagulants after discussing with ordering provider to stop. If unable to discontinue anti-coagulants please notify radiologist. ? No aspirin or warfarin (Coumadin) for 7 days prior to the procedure. ? No clopidogrel (Plavix), ticagrelor (Brilinta), prasugrel (Effient) or dabigatran (Pradaxa) for 5 days prior to the procedure. ? No rivaroxaban (Xarelto), apixaban (Eliquis), dipyridamole (Aggrenox or Persantine) or cilostazol (Pletal) for 2 days prior to the procedure. Medications to discontinue per physician: ___ASPIRIN Date to take last dose: __06/29/23 - CONFIRMED WITH PT Please leave all valuables, including medications, at home the day of procedure. The hospital will not accept responsibility for valuables. Wear comfortable, loose fitting clothing.? Follow any additional instructions given to you from ordering provider. Telephone instructions given to ___PATIENT and asked if any additional questions and then verbalized understanding. Patient advised to call scheduling provider office or registration scheduling [phone] if any additional questions.
[2023-07-07] VITALS (11 sets, daily range): BP systolic 115–150; BP diastolic 50–82; PULSE 56–61; RESP 16–20; TEMP 36.6; O2SAT 96–100
--- NOTE | ~2023-07-07 | CT_ITS ---
EXAMINATION: CT biopsy lung w/imaging DATE: 07/07/2023 12:13 INDICATION: FDG avid left lung mass. TECHNIQUE: The procedure including the risks and benefits was discussed with the patient. Risks discu ssed included infection, approximately 1/20 risk of symptomatic hemorrhage beyond mild hemoptysis, ap proximately 1/3 risk of pneumothorax, and approximately 1/10 risk of pneumothorax severe enough to wa rrant chest tube placement. The patient understood the risks and agreed to proceed. The patient was p laced prone. The skin overlying the left paraspinal upper thorax was prepped and draped in sterile f ashion. Anesthetic was administered with 1% lidocaine subcutaneously. A 19 gauge outer needle was a dvanced under CT guidance to the lesion of interest. A 20 gauge core biopsy needle was then used to o btain 4 core biopsy specimens. The needle was removed and the entry site was cleaned and dressed. Th ere were no immediate complications. The dose-length product was 179.48 mGy-cm. FINDINGS: CT images demonstrate the outer needle tip adjacent to a 2.4 cm mixed solid and some solid left upper lobe mass. IMPRESSION: 1. Successful CT-guided biopsy of the 2.4 cm left upper lobe mass of concern. Reviewed, dictated and finalized at location A. BULETTE DRIVER
--- NOTE | ~2023-07-07 | XR_ITS ---
EXAMINATION: XR chest 1V portable DATE: 07/07/2023 13:04 INDICATION: Status post left percutaneous lung biopsy TECHNIQUE: frontal view of the chest was obtained. COMPARISON: Chest radiograph dated 07/07/2023 FINDINGS: No new airspace opacities, pulmonary edema, pleural effusion or pneumothorax. Again seen is a subtle biopsied nodule projecting over the left upper lung zone. Nipple shadow projects over the inferior ma rgin of the anterior left sixth rib. The cardiomediastinal silhouette is normal. IMPRESSION: 1. No pneumothorax or other acute cardiopulmonary disease post percutaneous biopsy of a left upper lo be mass which is suspicious for primary bronchogenic carcinoma. Reviewed, dictated and finalized at location A. S WASHER IMPRESSION: 1. No pneumothorax or other acute cardiopulmonary disease post percutaneous bio psy of a left upper lobe mass which is suspicious for primary bronchogenic carc inoma.
--- NOTE | ~2023-07-07 | XR_ITS ---
EXAMINATION: XR chest 1V portable DATE: 07/07/2023 15:06 INDICATION: Left upper lobe mass post percutaneous left lung biopsy TECHNIQUE: frontal view of the chest was obtained. COMPARISON: Chest radiograph dated 07/07/[address] dated 05/14/2023 FINDINGS: Again seen is a subtle opacity left upper lung corresponding to the biopsied left upper lobe mass. Mi ld right apical pleural-parenchymal scarring. No new airspace opacities, pulmonary edema, pleural eff usion or pneumothorax. The cardiomediastinal silhouette is normal. IMPRESSION: 1. No pneumothorax or other acute cardiopulmonary disease post percutaneous biopsy of a left upper lo be mass concerning for primary bronchogenic carcinoma. Reviewed, dictated and finalized at location A. CIATE FINANCIAL ADVISOR IMPRESSION: 1. No pneumothorax or other acute cardiopulmonary disease post percutaneous bio psy of a left upper lobe mass concerning for primary bronchogenic carcinoma.
--- NOTE | ~2023-07-07 | XR_ITS ---
EXAMINATION: XR chest 1V DATE: 07/07/2023 12:13 INDICATION: Status post left lung biopsy TECHNIQUE: frontal view of the chest was obtained. COMPARISON: Chest radiograph dated 05/14/2023 FINDINGS: Again seen is the biopsied subtle nodular opacity projecting over the anterior left second rib. No ap preciable surrounding pulmonary hemorrhage or other new airspace opacities. No pulmonary edema, pleur al effusion or pneumothorax. The cardiomediastinal silhouette is normal. Moderate left glenohumeral o steoarthritis with large loose osteochondral body at the deep subscapular recess. IMPRESSION: 1. No pneumothorax, pulmonary hemorrhage or pleural effusion post percutaneous biopsy of a left upper lobe nodule which is concerning for malignancy. Reviewed, dictated and finalized at location A. PER COUNTERS
[2023-07-07 09:44] LABS: Mean Platelet Volume 9.6 fl (7.4-10.4); Platelet Count Result 238 k/mm3 (150-375)
[2023-07-07 09:54] LABS: Prothrombin Time 13.4 Seconds (11.1-14.7)
[2023-07-07 12:35] LABS: Glucose Point of Care 109 mg/dl (65-105)
== END 2023-07-07 15:37 | disposition home or self-care (01) ==
PROVIDERS: PCP Family Medicine; Visit Provider Radiology Diagnostic Radiology
PROC: BB24ZZZ Computerized Tomography (CT Scan) of Bilateral Lungs (ICD-10-PCS; CPT 32408; principal; 2023-07-07 11:00)
DX: Z01.818 Encounter for other preprocedural examination (principal); C34.12 Malignant neoplasm of upper lobe, left bronchus or lung; R91.1 Solitary pulmonary nodule; R91.8 Other nonspecific abnormal finding of lung field
CPT/HCPCS: 32408; 36415; 71045; 82948; 85049; 85610; 88305; 88342